=== PATIENT | male | born 1985 | race Caucasian/White ===

== ENCOUNTER → 2017-01-16 | Outpatient (CLI) | payer OTHER ==
--- NOTE | 2017-01-16 10:48 | DI ---
INDICATION: ITS.REASON: DX TESTING PROCEDURE: CHEST 2-VIEWS UPRIGHT (PA \T\ LAT) Encounter: Initial COMPARISON: None FINDINGS: The lungs are clear without evidence of focal abnormal airspace opacity. There is no pleural effusion or pneumothorax. The heart size, mediastinal contours and pulmonary vascularity are within normal limits. There is no significant skeletal abnormality. IMPRESSION: No acute cardiopulmonary disease. .
--- NOTE | 2017-01-16 10:49 | DI ---
Indication: ITS.REASON: DX TESTING PROCEDURE: THORACIC SPINE 3 VIEWS: Encounter: Initial Comparison: None Findings: Alignment of the thoracic spine is within normal limits. Vertebral body heights and disk spaces are normal. No significant degenerative changes. Impression: Normal exam. .
== END ==
LOC: IMA 10:03
DX: Z02.89 Encounter for other administrative examinations (principal)